=== PATIENT | male | born 1950 | race Asian ===

== ENCOUNTER 2017-11-16 06:15 | Emergency (ER) | payer BC ==
[~2017-11-16] VITALS: Ht 162.6 cm; Wt 86.0 kg
[2017-11-16 06:20] VITALS: BP 165/108
[2017-11-16] MEDS ORDERED: benoxinate/fluorescein ophth drops 5ml bottle ONE (06:39)
== END 2017-11-16 08:47 | disposition home or self-care (01) ==
LOC: ER 06:15
DX: H54.7 Unspecified visual loss (principal); Z98.890 Other specified postprocedural states
CPT/HCPCS: 99283